=== PATIENT | male | born 1995 | race Caucasian/White ===

== ENCOUNTER 2019-02-14 09:49 | Emergency (ER) | payer OTHER ==
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
[2019-02-14] MEDS ORDERED: Diphtheria,Pertussis(Acell),Tetanus Vaccine 0.5 ML Syringe IM ONE (10:39)
--- NOTE | 2019-02-14 10:39 | CR ---
EXAM DATE: 02/14/19 PATIENT'S AGE: 23 Left hand: Three views of the left hand were obtained. Comparison: No prior hand exam. Joint spaces are maintained. Sclerotic area is noted within the proximal phalanx of the thumb which is felt to be incidental. No acute fracture, dislocation or other bony abnormality is identified. Impression: 1. Nothing acute is appreciated on left hand exam. Diagnostic code #1 This report was dictated in [place] Standard Time Report Signed by Proxy. TRESA
--- NOTE | 2019-02-14 11:08 | CT ---
EXAM DATE: 02/14/19 PATIENT'S AGE: 23 CT cervical spine Technique: Multiple axial sections were obtained from above C1 inferiorly to the bottom of T5. Reconstructed sagittal and coronal images were reviewed. Findings: Vertebral body heights and disc spaces are maintained. No fracture is appreciated. No abnormal subluxation is seen. No bony central or bony neural foraminal stenosis is seen. Visualized lung apices are clear. Impression: 1. Nothing acute is appreciated on CT study of the cervical spine. Diagnostic code #1 This report was dictated in [place] Standard Time Report Signed by Proxy. [facility]
--- NOTE | 2019-02-14 11:10 | CR ---
EXAM DATE: 02/14/19 PATIENT'S AGE: 23 Chest: Portable view of the chest was obtained. Comparison: No prior chest imaging is available. Heart size and mediastinum are normal. Lungs are clear with no acute parenchymal change. No discrete bony abnormality is appreciated. Impression: 1. Nothing acute is appreciated on portable chest x-ray. Diagnostic code #1 This report was dictated in [place] Standard Time Report Signed by Proxy. TRESA
--- NOTE | 2019-02-14 11:12 | CT ---
EXAM DATE: 02/14/19 PATIENT'S AGE: [address] Technique: Multiple axial sections through the brain were obtained. Intravenous contrast was not utilized. Comparison: No prior intracranial imaging is available. Findings: Ventricles along with basal cisterns and sulci over the convexities appear within normal limits for the patient's age. No abnormal parenchymal densities are seen. No evidence of intracranial hemorrhage. No midline shift or mass effect is seen. Bone window settings were reviewed which show the visualized paranasal sinuses and mastoid sinuses to appear clear. No acute calvarial abnormality is appreciated. Impression: 1. Nothing acute is appreciated on noncontrast head CT exam. Diagnostic code #1 This report was dictated in [place] Standard Time Report Signed by Proxy. [facility]
[2019-02-14] MEDS ORDERED: Ketorolac 60 MG/2 ML SDV IM ONE (11:37)
[2019-02-14 11:38] LABS: BLOOD UREA NITROGEN,BUN 18 mg/dL (7.0-18.0); CARBON DIOXIDE,CO2 23.4 mmol/L (21.0-32.0); CHLORIDE,CL 105 mmol/L (98-107); GLUCOSE RANDOM 98 mg/dL (74-106); LIPASE 75 U/L (73-393); POTASSIUM,K 3.7 mmol/L (3.5-5.1); SODIUM,NA 141 mmol/L (136-148)
[2019-02-14] MEDS ORDERED: Bacitracin Oint 1 GM U/D Packet TOP ONE (11:48)
== END 2019-02-14 12:20 | disposition home or self-care (01) ==
LOC: EDBD 09:49 → MW.ED 09:49
DX: S09.90XA Unspecified injury of head, initial encounter (principal); S60.512A Abrasion of left hand, initial encounter; S00.81XA Abrasion of other part of head, initial encounter; Z23 Encounter for immunization; V43.52XA Car driver injured in collision with other type car in traffic accident, initial encounter; Y92.410 Unspecified street and highway as the place of occurrence of the external cause
CPT/HCPCS: 36415; 70450; 71045; 72125; 73130; 80053; 81003; 83690; 85025; 90471; 90715; 93005; 96372; 99284; J1885